=== PATIENT | male | born 1975 | race African-American/Black ===

== ENCOUNTER 2017-01-13 00:35 | Emergency (ER) | payer MEDICARE, OTHER ==
[~2017-01-13] VITALS: Ht 185.4 cm; Wt 90.7 kg
[2017-01-13 04:53] VITALS: BP 132/97
== END 2017-01-13 04:50 | disposition home or self-care (01) ==
LOC: EDBD 00:35 → ER 00:35
DX: S80.211A Abrasion, right knee, initial encounter (principal); S80.212A Abrasion, left knee, initial encounter; V87.8XXA Person injured in other specified noncollision transport accidents involving motor vehicle (traffic), initial encounter; Y93.89 Activity, other specified; Y99.8 Other external cause status; Y92.89 Other specified places as the place of occurrence of the external cause
CPT/HCPCS: 72125; 73562; 74176